=== PATIENT | female | born 1950 | race Caucasian/White ===

== ENCOUNTER 2021-05-02 09:18 | Emergency (ER) | payer MEDICARE, OTHER ==
[~2021-05-02] VITALS: Ht 157.5 cm; Wt 72.6 kg
[2021-05-02] MEDS ORDERED: fentaNYL INJ 100 MCG/2 ML AMP IVP STA ×2 (09:43→12:43)
[2021-05-02] MEDS ORDERED: ORPHENADRINE 60 MG/2 ML (NORFLEX) AMP (ED ONLY) IVP STA (09:43)
[2021-05-02] MEDS ORDERED: NS IV 500 ML 500 ML IV STA (09:43)
--- NOTE | 2021-05-02 10:00 | ED General ---
General Stated Complaint: LWR BACK PAIN; ABD PAIN Source of Information: Patient History of Present Illness Date Seen by Provider: May 02, 2021 Time Seen by Provider: 09:19 Initial Comments 70-year-old female presenting with low back pain and lower abdominal pain radiating to her right hip and groin. This has been present since last Wednesday, 22 Apr 2021. She has been seen 2 times in [facility] ED for same complaints and reports she was initially told it was back strain and then told it was kidney infection. She has 1 more Keflex pill to take for urine infection. Tramadol and muscle relaxer prescribed for her back strain was not helping. She felt the pain was worsening and especially when she tries to get up out of bed or change positions she has sharp spasms and stabbing pain in her back. She denies trauma or injury to trigger her symptoms. She does have known Abdominal Aortic Aneurysm that is scheduled to be evaluated this month by Dr. Pizano, [facility] [employer]. 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 She reports her PCP moved away from [place] and she never found a replacement provider. She does not have Medicare supplemental insurance to cover prescriptions so she has not been consistent with taking her blood pressure medicines like she is prescribed. She denies change in her bowels, nausea, vomiting, fever, chills. She has some pain with urine still. She states the pain all initially came on while she was trying to carry a basket of laundry down the stairs. Timing/Duration: Getting Worse Severity: Severe Modifying Factors: worse with Movement Associated Systoms: No Chest Pain, No Cough, No Diaphoresis, No Fever/Chills, No Headaches, No Loss of Appetite, No Malaise, No Nausea/Vomiting, No Rash, No Seizure, No Shortness of Air, No Syncope, No Weakness Allergies and Home Medications Allergies Coded Allergies: No Known Drug Allergies (Unverified , 05/02/21) Patient Home Medication List Home Medication List Reviewed: Yes Baclofen (Baclofen) 10 Mg Tablet, 10 MG PO BID PRN for MUSCLE SPASMS Prescribed by: MARCI JALLOH on 05/02/21 1301 Hydrocodone/Acetaminophen (Hydrocodone-Acetamin 10-325 mg) 1 Each Tablet, 1 EACH PO Q6H PRN for PAIN-SEVERE (8-10) Prescribed by: MARCI JALLOH on 05/02/21 1302 Prednisone (Prednisone) 20 Mg Tab, 40 MG PO DAILY Prescribed by: MARCI CARSONRT on 05/02/21 1301 Review of Systems Review of Systems Constitutional: see HPI EENTM: no symptoms reported Respiratory: see HPI Cardiovascular: No chest pain, No edema, No palpitations Gastrointestinal: abdominal pain (lower abdominal pain); No nausea, No vomiting Genitourinary: dysuria Musculoskeletal: see HPI; No muscle weakness Skin: No change in color Psychiatric/Neurological: Anxiety; Denies Numbness, Denies Paresthesia Past Oswttyf-Bzqldy-Dmkeqb Hx Patient Social History Tobacco Use?: Yes Tobacco type used: Cigarettes Smoking Status: Current Everyday Smoker Use of E-Cig and/or Vaping dev: No Substance use?: No Past Medical History Respiratory: No Cardiac: Yes Aneurysm, High Cholesterol, Hypertension Neurological: No Physical Exam Vital Signs Vital Signs - First Documented 05/02/21 05/02/21 09:23 13:09 Temp 36.4 Pulse 88 Resp 18 B/P (MAP) 159/99 (119) Pulse Ox 97 O2 Delivery Room Air Capillary Refill : Height, Weight, BMI Height: '" Weight: lbs. oz. kg; BMI Method: General Appearance: Moderate Distress, Other (appears older than stated age) HEENT: PERRL/EOMI, Pharynx Normal Neck: Full Range of Motion, Supple Respiratory: Chest Non Tender, Lungs Clear, Normal Breath Sounds Cardiovascular: Regular Rate, Rhythm, Normal Peripheral Pulses Gastrointestinal: Normal Bowel Sounds, Non Tender, Soft, Mass (pulsatile mass in mid-abdomen consistent with abdominal aortic aneurysm) Rectal: Deferred Back: CVA Tenderness (L), CVA Tenderness (R), Muscle Spasm (across lower back) Extremity: Normal Capillary Refill, Normal Inspection, No Pedal Edema Neurologic/Psychiatric: Alert, Oriented x3, No Motor/Sensory Deficits, director of cardiology II- XII Norm as Tested Skin: Normal Color, Warm/Dry Progress/Results/Core Measures Suspected Sepsis SIRS Temperature: Pulse: Respiratory Rate: Laboratory Tests 05/02/21 09:44: White Blood Count 7.3 Blood Pressure / Mean: Laboratory Tests 05/02/21 09:44: Creatinine 0.53L, INR Comment 0.9, Platelet Count 260, Total Bilirubin 0.3 Results/Orders Lab Results Laboratory Tests Test 05/02/21 09:21 05/02/21 09:44 Range/Units Urine Color YELLOW Urine Clarity SL CLOUDY Urine pH 7.5 5-9 Urine Specific Clarence 1.020 1.016-1.022 Urine Protein NEGATIVE NEGATIVE Urine Glucose (UA) NEGATIVE NEGATIVE Urine Ketones NEGATIVE NEGATIVE Urine Nitrite NEGATIVE NEGATIVE Urine Bilirubin NEGATIVE NEGATIVE Urine Urobilinogen 1.0 < = 1.0 MG/DL Urine Leukocyte Esterase NEGATIVE NEGATIVE Urine RBC (Auto) NEGATIVE NEGATIVE Urine RBC NONE /HPF Urine WBC 5-10 H /HPF Urine Squamous Epithelial Cells 2-5 /HPF Urine Crystals PRESENT H /LPF Urine Amorphous Sediment FEW REJI PHOSPHATE H /LPF Urine Bacteria NEGATIVE /HPF Urine Casts NONE /LPF Urine Mucus MODERATE H /LPF Urine Culture Indicated NO White Blood Count 7.3 4.3-11.0 10^3/uL Red Blood Count 5.49 H 3.80-5.11 10^6/uL Hemoglobin 14.9 11.5-16.0 g/dL Hematocrit 47 35-52 % Mean Corpuscular Volume 86 80-99 fL Mean Corpuscular Hemoglobin 27 25-34 pg Mean Corpuscular Hemoglobin Concent 32 32-36 g/dL Red Cell Distribution Width 14.6 H 10.0-14.5 % Platelet Count 260 130-400 10^3/uL Mean Platelet Volume 9.2 9.0-12.2 fL Immature Granulocyte % (Auto) 1 % Neutrophils (%) (Auto) 73 42-75 % Lymphocytes (%) (Auto) 20 12-44 % Monocytes (%) (Auto) 5 0-12 % Eosinophils (%) (Auto) 1 0-10 % Basophils (%) (Auto) 0 0-10 % Neutrophils # (Auto) 5.3 1.8-7.8 X 10^3 Lymphocytes # (Auto) 1.5 1.0-4.0 X 10^3 Monocytes # (Auto) 0.4 0.0-1.0 X 10^3 Eosinophils # (Auto) 0.1 0.0-0.3 10^3/uL Basophils # (Auto) 0.0 0.0-0.1 10^3/uL Immature Granulocyte # (Auto) 0.0 0.0-0.1 10^3/uL Prothrombin Time 12.5 12.2-14.7 SEC INR Comment 0.9 0.8-1.4 Activated Partial Thromboplast Time 31 24-35 SEC Sodium Level 141 135-145 MMOL/L Potassium Level 4.1 3.6-5.0 MMOL/L Chloride Level 104 98-107 MMOL/L Carbon Dioxide Level 25 21-32 MMOL/L Anion Gap 12 5-14 MMOL/L Blood Urea Nitrogen 21 H 7-18 MG/DL Creatinine 0.53 L 0.60-1.30 MG/DL Estimat Glomerular Filtration Rate 113 BUN/Creatinine Ratio 40 Glucose Level 92 70-105 MG/DL Calcium Level 10.1 8.5-10.1 MG/DL Corrected Calcium 9.9 8.5-10.1 MG/DL Total Bilirubin 0.3 0.1-1.0 MG/DL Aspartate Amino Transf (AST/SGOT) 16 5-34 U/L Alanine Aminotransferase (ALT/SGPT) 16 0-55 U/L Alkaline Phosphatase 109 40-136 U/L Total Protein 7.7 6.4-8.2 GM/DL Albumin 4.3 3.2-4.5 GM/DL Lipase 11 8-78 U/L My Orders Orders - MARCI JALLOH MD Comprehensive Metabolic Panel (05/02/21 09:43) Lipase (05/02/21 09:43) Ua Culture If Indicated (05/02/21 09:43) Ed Iv/Invasive Line Start (05/02/21 09:43) Cbc With Automated Diff (05/02/21 09:43) Ct Abdomen/Pelvis W (05/02/21 09:43) Ns Iv 500 Ml (Sodium Chloride 0.9%) (05/02/21 09:43) Fentanyl Inj (Sublimaze Injection) (05/02/21 09:43) Orphenadrine Inj (Ed Only) (Norflex Inje (05/02/21 09:43) Protime With Inr (05/02/21 09:43) Partial Thromboplastin Time (05/02/21 09:43) Iohexol Injection (Omnipaque 350 Mg/Ml 1 (05/02/21 11:30) Received Contrast (Hold Metformin- Contr (05/02/21 11:30) Sodium Chloride Flush (Catheter Flush Sy (05/02/21 11:30) Ns (Ivpb) (Sodium Chloride 0.9% Ivpb Bag (05/02/21 11:30) Fentanyl Inj (Sublimaze Injection) (05/02/21 12:43) Ketorolac Injection (Toradol Injection) (05/02/21 12:43) Medications Given in ED Current Medications Medications Dose Ordered Sig/Salazar Route Start Time Stop Time Status Last Admin Dose Admin Iohexol 100 ml ONCE ONCE IV 05/02/21 11:30 05/02/21 11:31 DC 05/02/21 11:21 100 ML Sodium Chloride 10 ml NEEDED PRN IV 05/02/21 11:30 05/02/21 13:11 DC 05/02/21 11:21 10 ML Sodium Chloride 100 ml ONCE ONCE IV 05/02/21 11:30 05/02/21 11:31 DC 05/02/21 11:21 100 ML Vital Signs/I&O 05/02/21 05/02/21 09:23 13:09 Temp 36.4 Pulse 88 74 Resp 18 17 B/P (MAP) 159/99 (119) 149/87 Pulse Ox 97 O2 Delivery Room Air Room Air Capillary Refill : Progress Note #1: Progress Note Check labs and CT scan of abdomen/pelvis with IV contrast to evaluate AAA and her lumbar spine and low back pain. Request records from [facility] for her prior visits to compare to results from today. Give IVF for hydration, Fentanyl 50 mcg for pain in back, Norflex 30 mg IV for spasms of muscles in back. Differential diagnosis includes pyelonephritis, ruptured aortic aneurysm, compression fracture of vertebral body, sciatica, diverticulitis, colitis, kidney stone, appendicitis, abdominal mass Progress Note #2: Progress Note Labs appear stable without acute signs of urine infection. Her blood count and chemistry panel did not show acute significant abnormality to account for her pain. She had no evidence of acute coagulopathy with her pro time/INR or PTT. With her creatinine looking okay she should be able to tolerate the CT abdomen and pelvis with contrast. She does report some improvement with her pain after getting the initial fentanyl and Norflex. Progress Note #3: Progress Note CT scan shows abdominal aortic aneurysm measuring up to 5.5 cm. There is mural thrombus but there is no evidence of leaking or rupture. She has no retroperitoneal hemorrhage. The aneurysm does not extend past the iliac bifurcation. She has a dilated gallbladder. She has some diverticulosis but no diverticulitis. There are some compression fractures of L1 and L2 but no definite acute fracture lines. Discussed results with the patient and advised that the compression fractures may still be causing her pain and causing inflammation of the paraspinal lumbar muscles and nerves. We will try treating with a higher dose of pain medicine just as needed as well as a steroid burst to try and help with inflammation and swelling. Counseled on follow-up and establishing with a primary care provider as she may need to see pain management if the back continues to hurt they may consider vertebroplasty for the compression fractures. Will give a dose of Toradol and an additional 50 mcg of fentanyl prior to discharge. Electronically transmitted prescriptions to [facility] in [place]. Diagnostic Imaging Diagonstic Imaging: CT Plain Films/CT/US/NM/MRI: abdomen, pelvis Comments NAME: [facility] REC#: [id number] PT STATUS: REG ER : 1950 PHYSICIAN: MARCI JALLOH MD ADMIT DATE: 05/02/21/ER FS Draft Date of Exam:05/02/21 CT ABDOMEN/PELVIS W PROCEDURE: CT abdomen and pelvis with contrast. TECHNIQUE: Multiple contiguous axial images were obtained through the abdomen and pelvis after administration of intravenous contrast. Auto Exposure Controls were utilized during the CT exam to meet ALARA standards for radiation dose reduction. All CT scans use one or more of the following dose optimizing techniques: automated exposure control, MA and/or KvP adjustment based on patient size and exam type or iterative reconstruction. INDICATION: Low back pain and lower abdominal pain, radiating to the right hip. No prior studies are available for comparison. The lung bases are clear. Liver does contain several circumscribed low attenuation lesions, largest in the left lobe measuring 18 mm in transverse dimension. It is most suggestive of cysts. There is some dilatation to the gallbladder. The pancreas and spleen are unremarkable. No adrenal mass is identified. Right kidney contains a low-attenuation lesion in the upper pole measuring 3 cm in size and suggestive of a cyst. The infrarenal abdominal aorta is aneurysmal measuring 5.5 cm AP x 5.7 cm transverse. There is a large amount of mural thrombus. The aneurysm terminates just above the bifurcation. No retroperitoneal hemorrhage is seen. There is no evidence of leakage or rupture. The small and large bowel loops are normal in caliber. There is no obstruction. There is diverticulosis of the sigmoid but no evidence of acute diverticulitis. No free fluid identified. Bladder is decompressed. Uterus is absent or atrophic. Bony structures do show some superior end plate compression fractures involving L1 and L2 vertebral bodies which may be chronic. No acute fracture lines are seen. IMPRESSION: 1. Hepatic and renal cysts. 2. Moderate gallbladder distention. Gallbladder ultrasound may be useful for further evaluation. 3. Uncomplicated diverticulosis. 4. Infrarenal abdominal aortic aneurysm without evidence of leakage or rupture. Dictated on workstation # [id number] Dict: 05/02/21 1125 Trans: 05/02/21 1133 CV [id number] Interpreted by: DAXA SERRA MD Electronically signed by: Reviewed: Reviewed by Me Departure Impression Primary Impression: Acute exacerbation of chronic low back pain Additional Impressions: Right groin pain Abdominal aortic aneurysm Qualified Codes: I71.4 - Abdominal aortic aneurysm, without rupture Closed compression fracture of lumbar vertebra Qualified Codes: S32.010A - Wedge compression fracture of first lumbar vertebra, initial encounter for closed fracture Closed compression fracture of L2 vertebra Qualified Codes: S32.020A - Wedge compression fracture of second lumbar vertebra, initial encounter for closed fracture Disposition: 01 HOME, SELF-CARE Condition: Stable Departure-Patient Inst. Decision time for Depature: 12:53 Referrals: NO,LOCAL PHYSICIAN (PCP/Family) Primary Care Physician Patient Instructions: Vertebral Compression Fracture ED, Muscle and Bone Pain (DC), Low Back Pain ED Add. Discharge Instructions: Your tests today show you have compression fractures involving the Lumbar spine in 1st and 2nd vertebra. This can be irritating and inflaming your muscles and nerves in your back to cause your pain. The Aortic aneurysm appears stable and does not show signs of leaking or rupture. Your Urine is clear of infection so the antibiotics you were taking appear to have cleared the infection seen at [place]. You should establish with a primary care provider for follow up and they can help manage your pain and if needed get you in with pain management about possible procedures or treatment for the compression fractures. Take a laxative to help prevent constipation from the narcotic pain medicine. Do not drive yourself if you are taking the narcotic pain medicine. Scripts Baclofen (Baclofen) 10 Mg Tablet 10 MG PO BID PRN for MUSCLE SPASMS for 10 Days, #20 TAB 0 Refills Prov: MARCI JALLOH MD 05/02/21 Prednisone (Prednisone) 20 Mg Tab 40 MG PO DAILY for Back Pain for 7 Days, #14 TAB 0 Refills Prov: MARCI JALLOH MD 05/02/21 Hydrocodone/Acetaminophen (Hydrocodone-Acetamin 10-325 mg) 1 Each Tablet 1 EACH PO Q6H PRN for PAIN-SEVERE (8-10) for 5 Days, #20 TAB 0 Refills Prov: MARCI JALLOH MD 05/02/21 Work/School Note: Work Release Form Date Seen in the Emergency Department: May 02, 2021 Return to Work: May 05, 2021 Other Restrictions Listed Below: Light duty for next 2 weeks MARCI JALLOH MD May 02, 2021 10:00
[2021-05-02 10:01] LABS: BILIRUBIN,URINE NEGATIVE (NEGATIVE); CLARITY,URINE SL CLOUDY; COLOR,URINE YELLOW; GLUCOSE, URINE (UA) NEGATIVE (NEGATIVE); KETONES,URINE NEGATIVE (NEGATIVE); LEUKOCYTE ESTERASE ,URINE NEGATIVE (NEGATIVE); NITRITE,URINE NEGATIVE (NEGATIVE); PH,URINE 7.5 (5-9); PROTEIN,URINE NEGATIVE (NEGATIVE)
[2021-05-02 10:06] LABS: HEMATOCRIT 47 % (35-52); HEMOGLOBIN 14.9 g/dL (11.5-16.0); MEAN CORPUSCULAR HEMOGLOBIN 27 pg (25-34); MEAN CORPUSCULAR VOLUME 86 fL (80-99); WHITE BLOOD COUNT 7.3 10^3/uL (4.3-11.0)
[2021-05-02 10:07] LABS: BASOPHILS % (AUTO) 0 % (0-10); EOSINOPHILS # (AUTO) 0.1 10^3/uL (0.0-0.3); EOSINOPHILS % (AUTO) 1 % (0-10); LYMPHOCYTES # (AUTO) 1.5 X 10^3 (1.0-4.0); LYMPHOCYTES % (AUTO) 20 % (12-44); MEAN CORPUSCULAR HGB CONC 32 g/dL (32-36); MEAN PLATELET VOLUME 9.2 fL (9.0-12.2); MONOCYTES # (AUTO) 0.4 X 10^3 (0.0-1.0); MONOCYTES % (AUTO) 5 % (0-12); NEUTROPHILS # (AUTO) 5.3 X 10^3 (1.8-7.8); NEUTROPHILS % (AUTO) 73 % (42-75); PLATELET COUNT 260 10^3/uL (130-400)
[2021-05-02 10:15] LABS: INR 0.9 (0.8-1.4); PROTHROMBIN TIME PATIENT 12.5 SEC (12.2-14.7)
[2021-05-02 10:24] LABS: BILIRUBIN,TOTAL 0.3 MG/DL (0.1-1.0); CALCIUM 10.1 MG/DL (8.5-10.1); CREATININE SERUM 0.53 MG/DL (0.60-1.30); POTASSIUM 4.1 MMOL/L (3.6-5.0)
[2021-05-02 10:25] LABS: ALBUMIN 4.3 GM/DL (3.2-4.5); TOTAL PROTEIN 7.7 GM/DL (6.4-8.2)
[2021-05-02 10:42] LABS: BACTERIA,URINE NEGATIVE /HPF
[2021-05-02 10:43] LABS: AMORPHOUS SEDIMENT,UR FEW AMOR PHOSPHATE /LPF
[2021-05-02] MEDS ORDERED: NS 100 ML (IVPB) BAG IV ONE (11:30)
[2021-05-02] MEDS ORDERED: IOHEXOL 350 MG/ML 100 ML (OMNIPAQUE 350) VIAL IV ONE (11:30)
[2021-05-02] MEDS ORDERED: HOLD METFORMIN - RECEIVED CONTRAST 20 ML VIAL IV SCH (11:30)
[2021-05-02] MEDS ORDERED: CATHETER FLUSH 10 ML SYR IV PRN (11:30)
--- NOTE | 2021-05-02 11:33 | Diagnostic Imaging Report ---
PROCEDURE: CT abdomen and pelvis with contrast. TECHNIQUE: Multiple contiguous axial images were obtained through the abdomen and pelvis after administration of intravenous contrast. Auto Exposure Controls were utilized during the CT exam to meet ALARA standards for radiation dose reduction. All CT scans use one or more of the following dose optimizing techniques: automated exposure control, MA and/or KvP adjustment based on patient size and exam type or iterative reconstruction. INDICATION: Low back pain and lower abdominal pain, radiating to the right hip. No prior studies are available for comparison. The lung bases are clear. Liver does contain several circumscribed low attenuation lesions, largest in the left lobe measuring 18 mm in transverse dimension. It is most suggestive of cysts. There is some dilatation to the gallbladder. The pancreas and spleen are unremarkable. No adrenal mass is identified. Right kidney contains a low-attenuation lesion in the upper pole measuring 3 cm in size and suggestive of a cyst. The infrarenal abdominal aorta is aneurysmal measuring 5.5 cm AP x 5.7 cm transverse. There is a large amount of mural thrombus. The aneurysm terminates just above the bifurcation. No retroperitoneal hemorrhage is seen. There is no evidence of leakage or rupture. The small and large bowel loops are normal in caliber. There is no obstruction. There is diverticulosis of the sigmoid but no evidence of acute diverticulitis. No free fluid identified. Bladder is decompressed. Uterus is absent or atrophic. Bony structures do show some superior end plate compression fractures involving L1 and L2 vertebral bodies which may be chronic. No acute fracture lines are seen. IMPRESSION: 1. Hepatic and renal cysts. 2. Moderate gallbladder distention. Gallbladder ultrasound may be useful for further evaluation. 3. Uncomplicated diverticulosis. 4. Infrarenal abdominal aortic aneurysm without evidence of leakage or rupture. Dictated by: Dictated on workstation # [id number]
[2021-05-02] MEDS ORDERED: KETOROLAC 30 MG/ML VIAL IVP STA (12:43)
[2021-05-02] MEDS ORDERED: HYDR-3820 PO (13:01)
[2021-05-02] MEDS ORDERED: BACL10TA PO (13:01)
[2021-05-02] MEDS ORDERED: PRD20T PO (13:01)
[2021-05-02 13:09] VITALS: BP 149/87
== END 2021-05-02 13:09 | disposition home or self-care (01) ==
LOC: ER FS 09:19
DX: S32.010A Wedge compression fracture of first lumbar vertebra, initial encounter for closed fracture (principal); S32.020A Wedge compression fracture of second lumbar vertebra, initial encounter for closed fracture; I71.4 Abdominal aortic aneurysm, without rupture; G89.29 Other chronic pain; M54.50 Low back pain, unspecified; I10 Essential (primary) hypertension; F17.210 Nicotine dependence, cigarettes, uncomplicated; X58.XXXA Exposure to other specified factors, initial encounter
CPT/HCPCS: 36415; 74177; 80053; 81000; 83690; 85025; 85610; 85730; 96361; 96374; 96375; 96376